=== PATIENT | male | born 1985 | race Caucasian/White ===

== ENCOUNTER 2024-06-30 13:30 | Emergency (ER) | payer OTHER, MEDICAID, SELFPAY ==
--- NOTE | ~2024-06-30 | XR_ITS ---
HISTORY: left mid anterior rib pain s/p fall 4 days ago COMPARISON: None TECHNIQUE: 3 views of the left ribs were performed FINDINGS: No acute displaced fracture is appreciated. The adjacent left lung is unremarkable. Bone mineralization is age-appropriate. IMPRESSION: No acute displaced left-sided rib fracture, as detailed above. Reviewed, dictated and finalized at location A. BODY REPAIR TECHNICIAN
--- NOTE | 2024-06-30 13:48 | ED_ITS ---
HPI - Back Pain/Injury General Chief Complaint: Unspecified Stated Complaint: left rib pain, felt a pop Time Seen by Provider: 06/30/24 13:33 Source: patient Mode of arrival: ambulatory Limitations: no limitations History of Present Illness HPI Narrative: Kaiser is a 39-year-old male patient presenting to the clinic today with complaints of left rib pain times 3-4 days. He reports he fell when walking on a sidewalk and landed on the left side. He stated he felt like there was a pop. Is having pain with deep inspiration and taking shallow breaths. Also hurts when coughing and sneezing. Related Data Allergies Allergy/AdvReac Type Severity Reaction Status Date / Time No Known Allergies Allergy Verified 06/30/24 13:35 Review of Systems Review of Systems: Pertinent positives per HPI. Patient denies any fever, chills, rash, headache, visual changes, dizziness, cough, runny nose, sore throat, shortness of breath, chest pain, palpitations, nausea, vomiting, diarrhea, constipation, abdominal pain, or any urinary issues. PMFSH Comments At the time of my signature, I reviewed and agree with the nursing past medical, surgical, social, and family history. There is no relevant family history pertinent to the patient complaint. Exam Narrative: At the time of visit patient is resting comfortably on the exam table. Patient appears to be nontoxic. Diagnostics: X-rays negative for any acute rib fracture. Plan: I suspect patient has a rib contusion. We will send in prescription for naproxen and cyclobenzaprine. Supportive measures were discussed with the patient and they voiced understanding discharge instructions and agrees to treatment plan. Return precautions reviewed Course Course Emergency Course: Portions of this record may have been created with voice recognition software. Level of Care: Express Care Visit Vital Signs Vital signs: Vital Signs Temperature 37.1 C 06/30/24 13:52 Pulse Rate 55 L 06/30/24 13:52 Respiratory Rate 16 06/30/24 13:52 Blood Pressure 109/65 06/30/24 13:52 Pulse Oximetry 99 06/30/24 13:52 Oxygen Delivery Autopap 06/30/24 13:52 Temperature 37.1 C 06/30/24 13:52 Pulse Rate 55 L 06/30/24 13:52 Respiratory Rate 16 06/30/24 13:52 Blood Pressure 109/65 06/30/24 13:52 Pulse Oximetry 99 06/30/24 13:52 Oxygen Delivery Autopap 06/30/24 13:52 Vital signs reviewed MDM - Back Pain/Injury MDM Narrative Medical decision making narrative: At the time of visit patient is resting comfortably on the exam table. Patient appears to be nontoxic. Diagnostics: X-ray of the left ribs is negative for any sign of fracture or malalignment. Plan: I suspect patient has a left rib contusion. Supportive measures were di scussed with the patient and they voiced understanding discharge instructions and agrees to treatment plan. Return precautions reviewed Differential Diagnosis Differential diagnosis: Likely other (Rib pain, contusion, chest wall pain, pleurisy) Imaging Data Radiologist's impression: ITS Impressions Ribs X-Ray 06/30/24 14:30 IMPRESSION: No acute displaced left-sided rib fracture, as detailed above. Discharge Plan Discharge Clinical Impression: Contusion of rib on left side Qualifiers: Encounter type: initial encounter Qualified Code(s): S20.212A - Contusion of left front wall of thorax, initial encounter Patient Disposition: Home, Self-Care Condition: Stable Instructions: Antibiotic Form, Rib Contusion (ED) Additional Instructions: X-ray of the left ribs is negative for any sign of fracture or malalignment. Take any prescription medication only as prescribed-naproxen and cyclobenzaprine Be mindful of sedation precautions given to you if taking a muscle relaxer. May use heat or ice to the affected area May use blue emu, lidocaine patches, or asper cream to affected area- do not apply heat or ice directly over cream- can cause burn. Follow up with your PCP in 3-5 days if symptom persist. Patient Language: Taiwanese Prescriptions: New naproxen 500 mg tablet 500 mg PO BID PRN (Reason: pain) 7 Days Qty: 14 0RF cyclobenzaprine 10 mg tablet 10 mg PO Q8H PRN (Reason: muscle spasm) 7 Days Qty: 21 0RF Follow-up/Referrals: Prateek,Lu Strauss MD [Primary Care Provider] - Stand Alone Forms: Work/School Release IP Time of Disposition: 14:43 Quality NIHSS Nursing Documentation ED NIHSS nursing documentation: reviewed/agree
[2024-06-30 13:52] VITALS: BP 109/65; PULSE 55; RESP 16; TEMP 37.1; O2SAT 99
== END 2024-06-30 14:51 | disposition home or self-care (01) ==
PROVIDERS: Emergency Provider Nurse Practitioner Family; PCP Internal Medicine Gastroenterology
DX: S20.212A Contusion of left front wall of thorax, initial encounter (principal); W19.XXXA Unspecified fall, initial encounter
CPT/HCPCS: 71100; 99203; G0463